=== PATIENT | male | born 1980 | race African-American/Black ===

== ENCOUNTER 2021-01-11 12:29 | Emergency (ER) | payer OTHER ==
[~2021-01-11] VITALS: Ht 175.3 cm; Wt 65.5 kg
[2021-01-11 12:40] VITALS: BP 156/112
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
== END 2021-01-11 13:20 | disposition home or self-care (01) ==
LOC: ER 12:29
DX: Z04.1 Encounter for examination and observation following transport accident (principal); V43.52XA Car driver injured in collision with other type car in traffic accident, initial encounter; Y93.I9 Activity, other involving external motion; Y92.89 Other specified places as the place of occurrence of the external cause; Y99.8 Other external cause status
CPT/HCPCS: 99282